=== PATIENT | female | born 1985 | race African-American/Black ===

== ENCOUNTER 2017-03-04 18:16 | Emergency (ER) | payer MEDICAID ==
[~2017-03-04] VITALS: Ht 185.4 cm; Wt 170.0 kg
[~2017-03-04 18:16] MED LIST: NORCO
[2017-03-04 18:34] VITALS: BP 129/99
== END 2017-03-04 21:00 | disposition left against medical advice (07) ==
LOC: ER 18:16
DX: M54.5 Low back pain (principal); Z53.21 Procedure and treatment not carried out due to patient leaving prior to being seen by health care provider